=== PATIENT | female | born 1950 | race Caucasian/White ===

== ENCOUNTER 2018-01-26 10:23 | Outpatient (CLI) | payer MEDICARE, OTHER ==
[2018-01-26 17:28] LABS: BASOPHILS % (AUTO) 0.9 %; EOSINOPHILS # (AUTO) 0.2 10^3/uL (0.0-0.7); EOSINOPHILS % (AUTO) 3.7 %; HGB - HEMOGLOBIN 14.5 g/dL (12.0-16.0); LYMPHOCYTES # (AUTO) 1.1 10^3/uL (1.5-3.5); LYMPHOCYTES % (AUTO) 27.7 %; MEAN CORPUSCULAR HEMOGLOBIN 32.7 pg (27.0-31.0); MEAN CORPUSCULAR HGB CONC 34.3 g/dL (32.0-36.0); MEAN CORPUSCULAR VOLUME 95.5 fL (81.0-99.0); MEAN PLATELET VOLUME 8.4 fL (7.9-10.8); MONOCYTES # (AUTO) 0.4 10^3/uL (0.0-1.0); MONOCYTES % (AUTO) 10.1 %; NEUTROPHILS # (AUTO) 2.3 10^3/uL (1.5-6.6); NEUTROPHILS % (AUTO) 57.6 %; PLT - PLATELET COUNT 174 10^3/uL (130-450); RED BLOOD COUNT 4.44 10^6/uL (4.20-5.40); RED CELL DISTRIBUTION WIDTH 13.1 % (12.0-15.0)
[2018-01-26 17:33] LABS: INR 1.1 (0.8-1.2); PT - PROTHROMBIN TIME 12.6 secs (9.9-12.6)
[2018-01-26 17:41] LABS: ALBUMIN 4.2 g/dL (3.2-5.5); ALBUMIN/GLOBULIN RATIO 1.6 (1.0-2.2); BILIRUBIN,DIRECT 0.1 mg/dL (0.1-0.5); BILIRUBIN,TOTAL 0.6 mg/dL (0.2-1.0); CALCIUM 9.2 mg/dL (8.5-10.3); CREATININE 0.4 mg/dL (0.4-1.0); TOTAL PROTEIN 6.8 g/dL (6.7-8.2)
[2018-01-27 15:16] LABS: ALPHA FETOPROTEIN TUMOR MARKER 3.1 ng/mL
== END 2018-01-26 10:24 | disposition home or self-care (01) ==
LOC: LAB.F 10:23
PROVIDERS: ATTEND Internal Medicine
DX: B19.20 Unspecified viral hepatitis C without hepatic coma (principal); K74.60 Unspecified cirrhosis of liver; E83.119 Hemochromatosis, unspecified; I10 Essential (primary) hypertension; E78.5 Hyperlipidemia, unspecified
CPT/HCPCS: 36415; 80053; 82105; 82248; 82728; 83540; 84466; 85025; 85610; 86803; 87522

== ENCOUNTER 2018-03-01 09:46 | Outpatient (CLI) | payer MEDICARE, OTHER ==
--- NOTE | 2018-03-01 11:26 | Ultrasound Report ---
Procedure Date: 03/01/2018 Accession Number: [id number] / [id number] Procedure: US - Abdomen Complete CPT Code: FULL RESULT: EXAM: Abdomen Complete DATE: 03/01/2018 11:06 AM CLINICAL HISTORY: HEPATITIS C, HEMOCHROMATOSIS COMPARISON: None. TECHNIQUE: Real-time scanning was performed with static images obtained. FINDINGS: Liver: Shrunken with nodular contour and coarse echotexture with decreased echogenicity in keeping with cirrhosis and history of hemachromatosis. No discrete mass is identified. The main portal vein appears enlarged in caliber and demonstrates suggestion of partial reversal of flow on color Doppler only. The umbilical vein is recanalized. Gallbladder: The patient is status post cholecystectomy. Biliary System: Common bile duct measures 2.4 mm. No intrahepatic or extrahepatic ductal dilatation. Pancreas: Visualized portion is unremarkable. Kidneys: Right: 11.1 cm longitudinally. Normal. No contour-deforming mass, stones, or hydronephrosis. Left: 12.4 cm longitudinally. Normal. No contour-deforming mass, stones, or hydronephrosis. Spleen: 12 cm. Normal background echotexture with tiny cysts. Aorta and Inferior Vena Cava: Unremarkable with the upper abdominal aorta measuring up to 2.4 cm. IMPRESSION: Cirrhotic liver configuration with enlarged portal vein and recanalized periumbilical veins. No mass is identified. Recanalized periumbilical vein and subjectively enlarged portal vein with question of partial reversal of flow on limited color Doppler examination are concerning for the possibility of portal hypertension possibly with nonocclusive portal vein thrombosis. Consider CT abdomen with portal venous phase contrast versus portal venous MRV without contrast to exclude portal vein thrombosis. Referral to hepatology for workup of portal hypertension potentially with transjugular liver biopsy with pressure measurements. RADIA
== END 2018-03-01 09:47 | disposition home or self-care (01) ==
LOC: DI 09:46
PROVIDERS: ATTEND Internal Medicine
DX: B19.20 Unspecified viral hepatitis C without hepatic coma (principal); K74.60 Unspecified cirrhosis of liver; E83.119 Hemochromatosis, unspecified; Z85.05 Personal history of malignant neoplasm of liver; I82.890 Acute embolism and thrombosis of other specified veins
CPT/HCPCS: 76700

== ENCOUNTER 2018-03-20 13:01 | Outpatient (CLI) | payer MEDICARE, OTHER ==
[2018-03-20] MEDS ORDERED: IOPAMIDOL-300 100 ML VIAL ONE (13:28)
[2018-03-20] MEDS ORDERED: IOPAMIDOL-300 50 ML VIAL ONE (13:28)
[2018-03-20 13:41] LABS: CREATININE 0.6 mg/dL (0.4-1.0)
[2018-03-20] MEDS ORDERED: IOPAMIDOL-300 100 ML VIAL IVP ONE (16:00)
[2018-03-20] MEDS ORDERED: IOPAMIDOL-300 50 ML VIAL PO ONE (16:00)
--- NOTE | 2018-03-20 16:02 | CT Report ---
Procedure Date: 03/20/2018 Accession Number: [id number] / [id number] Procedure: CT - Abdomen W/ CPT Code: FULL RESULT: EXAM: CT ABDOMEN WITH CONTRAST EXAM DATE: 03/20/2018 03:05 PM. CLINICAL HISTORY: Cirrhosis with enlarged portal vein. COMPARISON: None. TECHNIQUE: Routine helical CT imaging was performed through the abdomen. IV contrast: ISOVUE 300, 100 mL Enteric contrast: No. Reconstruction: Coronal and sagittal. In accordance with CT protocol optimization, one or more of the following dose reduction techniques were utilized for this exam: automated exposure control, adjustment of mA and/or KV based on patient size, or use of iterative reconstructive technique. FINDINGS: Lung Bases: Unremarkable. Liver: Small caliber, irregular contour. No focal mass lesions. Gallbladder/Bile Ducts: Cholecystectomy. Common bile duct measures 10 mm. No intrahepatic biliary duct dilatation. Spleen: Mildly enlarged, measuring 12 cm in length. Pancreas: Normal. Adrenal Glands: Normal. Kidneys: Normal. No masses or hydronephrosis. Peritoneal Cavity/Bowel: Diverticula off the colon. No free fluid, free air or adenopathy. No masses or acute inflammatory process. Appendix not seen. Vasculature: Recanalization of the umbilical vein. Multiple upper abdominal varices. Patent portal vein. Bones: No significant abnormality. Other: None. IMPRESSION: 1. Cirrhotic liver with portal hypertension. 2. Colonic diverticulosis. RADIA
== END 2018-03-20 13:02 | disposition home or self-care (01) ==
LOC: LAB 13:01
PROVIDERS: ATTEND Internal Medicine
DX: K74.60 Unspecified cirrhosis of liver (principal); K76.6 Portal hypertension; E83.119 Hemochromatosis, unspecified; B19.20 Unspecified viral hepatitis C without hepatic coma; K57.30 Diverticulosis of large intestine without perforation or abscess without bleeding
CPT/HCPCS: 36415; 74160; 82565; Q9967

== ENCOUNTER 2018-04-26 08:53 | Outpatient (CLI) | payer MEDICARE, OTHER ==
[2018-04-26 09:38] LABS: CHOL/HDL RATIO 3.4 (<4.4); CHOLESTEROL 210 mg/dL; HDL CHOLESTEROL 61 mg/dL; LDL CHOLESTEROL,CALCULATED 140 mg/dL; LDL/HDL RATIO 2.3 (<4.4); VLDL CHOLESTEROL 9 mg/dL
== END 2018-04-26 08:54 | disposition home or self-care (01) ==
LOC: LAB 08:53
PROVIDERS: ATTEND Internal Medicine
DX: E78.5 Hyperlipidemia, unspecified (principal)
CPT/HCPCS: 36415; 80061; 83721

== ENCOUNTER 2018-05-09 11:32 | Outpatient (CLI) | payer MEDICARE, OTHER | END 2018-05-09 11:33 | disposition home or self-care (01) | LOC: DI 11:32 | PROVIDERS: ATTEND Internal Medicine | DX: Z12.31 Encounter for screening mammogram for malignant neoplasm of breast (principal) | CPT/HCPCS: 77063; 77067 ==

== ENCOUNTER 2019-05-11 11:39 | Outpatient (CLI) | payer MEDICARE, OTHER ==
--- NOTE | 2019-05-11 15:44 | Mammography Report ---
Reason: SCREENING MAMMO Procedure Date: 05/11/2019 Accession Number: [id number] / [id number] Procedure: MGS - Screening Mammo Dig Bilat CPT Code: FULL RESULT: EXAM: Screening Mammo Dig Bilat DATE: 05/11/2019 12:02 PM CLINICAL HISTORY: Screening TECHNIQUE: (B) - Bilateral CC and MLO views were obtained. COMPARISON: 05/09/2018 PARENCHYMAL PATTERN: (A) - The breasts demonstrate scattered fibroglandular densities bilaterally. FINDINGS: There are no suspicious masses, calcifications, or areas of distortion. IMPRESSION: Negative examination. BI-RADS category 1. RECOMMENDATION: (ANNUAL) - Recommend routine annual screening mammography. BI-RADS CATEGORY: (1) - Negative. STANDARD QUALIFYING STATEMENTS: 1. This examination was reviewed with the aid of Computer-Aided Detection (CAD). 2. A negative or benign imaging report should not preclude biopsy if clinically suspicious findings are present. 3. Dense breasts may obscure an underlying neoplasm. 4. This examination was reviewed without the aid of 3D breast imaging (tomosynthesis).
== END 2019-05-11 11:40 | disposition home or self-care (01) ==
LOC: DI.S 11:39
DX: Z12.31 Encounter for screening mammogram for malignant neoplasm of breast (principal)
CPT/HCPCS: 77067

== ENCOUNTER 2020-01-27 08:32 | Outpatient (CLI) | payer MEDICARE, OTHER ==
[2020-01-27 10:30] LABS: INR 1.1 (0.8-1.2); PT - PROTHROMBIN TIME 12.9 secs (9.9-12.6)
[2020-01-27 10:31] LABS: BASOPHILS % (AUTO) 0.7 %; EOSINOPHILS # (AUTO) 0.1 10^3/uL (0.0-0.7); EOSINOPHILS % (AUTO) 3.2 %; HGB - HEMOGLOBIN 13.6 g/dL (12.0-16.0); LYMPHOCYTES # (AUTO) 1.1 10^3/uL (1.5-3.5); LYMPHOCYTES % (AUTO) 26.9 %; MEAN CORPUSCULAR HEMOGLOBIN 33.2 pg (27.0-31.0); MEAN CORPUSCULAR HGB CONC 34.8 g/dL (32.0-36.0); MEAN CORPUSCULAR VOLUME 95.4 fL (81.0-99.0); MEAN PLATELET VOLUME 9.8 fL (7.9-10.8); MONOCYTES # (AUTO) 0.4 10^3/uL (0.0-1.0); MONOCYTES % (AUTO) 10.5 %; NEUTROPHILS # (AUTO) 2.4 10^3/uL (1.5-6.6); NEUTROPHILS % (AUTO) 58.5 %; PLT - PLATELET COUNT 184 10^3/uL (130-450); RED CELL DISTRIBUTION WIDTH 12.4 % (12.0-15.0); WHITE BLOOD COUNT 4.1 x10^3/uL (4.8-10.8)
[2020-01-27 10:41] LABS: ALBUMIN/GLOBULIN RATIO 1.5 (1.0-2.2); CALCIUM 9.1 mg/dL (8.5-10.3); CREATININE 0.6 mg/dL (0.4-1.0); TOTAL PROTEIN 6.7 g/dL (6.7-8.2)
--- NOTE | 2020-01-28 10:16 | Ultrasound Report ---
PROCEDURE: Abdomen Complete INDICATIONS: CIRRHOSIS OF LIVER TECHNIQUE: Real-time scanning was performed of the abdominal and retroperitoneal organs, with image documentatio n. COMPARISON: CT of abdomen dated 03/20/2018. FINDINGS: Liver: Liver is normal in size. Increased liver parenchymal echotexture is seen with lobulated liver contour concerning for cirrhosis. No discrete hepatic lesion is noted. Main portal vein measures 1.7 cm in diameter and show normal hepatopedal flow. Gallbladder: Gallbladder is surgically absent. Biliary ducts: Intrahepatic bile ducts are non-dilated. Extrahepatic bile duct caliber measures 7 m m. Normal is 6-7 mm or less in diameter, or 10 mm or less post-cholecystectomy. Pancreas: Visualized portions of the pancreas are sonographically normal. Spleen: Spleen is normal in size and homogeneous in echotexture. Kidneys: Kidneys are normal in size and echotexture. Right kidney measures 11.4 cm long; left kidne y measures 11.7 cm long. No hydronephrosis or nephrolithiasis. No solid masses. Aorta: Visualized aorta is normal in caliber at less than 3 cm. Iliacs: Proximal common iliac arteries are normal in caliber at less than 2.5 cm. IVC: Intrahepatic inferior vena cava is patent. Miscellaneous: No free abdominal fluid. IMPRESSION: 1. Cirrhotic appearing liver. No discrete hepatic lesion. Patent main portal vein with normal directi on of flow. 2. Prior cholecystectomy. 3. Rest of exam is unremarkable. Reviewed by: Vipul Alvarez MD on 01/28/2020 10:15 AM PDT Approved by: Vipul Alvarez MD on 01/28/2020 10:15 AM PDT Station ID: [id number]
== END 2020-01-27 08:33 | disposition home or self-care (01) ==
LOC: DI 08:32
PROVIDERS: ATTEND Nurse Practitioner
DX: K74.69 Other cirrhosis of liver (principal); Z90.49 Acquired absence of other specified parts of digestive tract
CPT/HCPCS: 36415; 76700; 80053; 82105; 85025; 85610

== ENCOUNTER 2021-02-07 16:39 | Outpatient (CLI) | payer MEDICARE, OTHER ==
--- NOTE | 2021-02-07 18:15 | Ultrasound Report ---
PROCEDURE: Abdomen Complete INDICATIONS: CIRRHOSIS OF LIVER TECHNIQUE: Real-time scanning was performed of the abdominal and retroperitoneal organs, with image documentatio n. COMPARISON: 01/27/2020 FINDINGS: Liver: The liver is again noted to have a coarsened echotexture with mild surface lobulations consist ent with cirrhotic change. Main portal vein is dilated, measuring 19 mm. There is hepatopedal flow. Gallbladder: Surgically absent Biliary ducts: Intrahepatic bile ducts are non-dilated. Extrahepatic bile duct caliber measures 9 m m. Normal is 6-7 mm or less in diameter, or 10 mm or less post-cholecystectomy. Pancreas: Visualized portions of the pancreas are sonographically normal. Spleen: Spleen is normal in size and homogeneous in echotexture. Spleen measures 10.3 cm in maximum diameter. Kidneys: Kidneys are normal in size and echotexture. Right kidney measures 10.0 cm long; left kidne y measures 11.1 cm long. No hydronephrosis or nephrolithiasis. No solid masses. Aorta: Visualized aorta is normal in caliber at less than 3 cm. Iliacs: Proximal common iliac arteries are normal in caliber at less than 2.5 cm. IVC: Intrahepatic inferior vena cava is patent. Miscellaneous: No free abdominal fluid. IMPRESSION: 1. Cirrhotic liver without focal masses. 2. Dilated main portal vein suggests portal venous hypertension. There is hepatopedal flow. 3. No splenomegaly or ascites. 4. Remote cholecystectomy. Reviewed by: Deep Palacios MD on 02/07/2021 5:14 PM AKGIANNA Approved by: Deep Palacios MD on 02/07/2021 5:14 PM AKDT Station ID: [id number]
== END 2021-02-07 16:40 | disposition home or self-care (01) ==
LOC: DI 16:39
PROVIDERS: ATTEND Nurse Practitioner
DX: K74.60 Unspecified cirrhosis of liver (principal); I87.8 Other specified disorders of veins; Z90.49 Acquired absence of other specified parts of digestive tract

== ENCOUNTER 2021-02-09 10:23 | Outpatient (CLI) | payer MEDICARE, OTHER ==
--- NOTE | 2021-02-11 11:52 | Mammography Report ---
BILATERAL DIGITAL SCREENING MAMMOGRAM 3D/2D: 02/09/2021 CLINICAL: Routine screening. Comparison is made to exams dated: 05/11/2019 mammogram, 05/09/2018 mammogram - [facility], 10/08/2013 mammogram, 10/01/2011 mammogram, 04/20/2010 mammogram, and 12/13/2006 mammogram. The ti ssue of both breasts is predominantly fatty. There is a stable benign focal asymmetry in the left breast. No significant masses, calcifications, or other findings are seen in either breast. There has been no significant interval change. IMPRESSION: BENIGN There is no mammographic evidence of malignancy. A 1 year screening mammogram is recommended. This exam was interpreted at Station ID: [id number]. NOTE: For mammograms, a report in lay terms will be sent to the patient. Approximately 15% of breast malignancies will not be visualized mammographically. In the management of a palpable breast mass, a negative mammogram must not discourage biopsy of a clinically suspicious lesion. Electronically Signed By: Fidel Roa acr/penrad:02/10/2021 18:06:24 ACR BI-RADS Category 2: Benign Finding(s) 3342F PARENCHYMAL PATTERN: (F) - The breast(s) demonstrate(s) diffuse fatty replacement. BI-RADS CATEGORY: (2) - 2 RECOMMENDATION: (ANNUAL) - Recommend routine annual screening mammography. [id number] 1 year screening LATERALITY: (B)
== END 2021-02-09 10:24 | disposition home or self-care (01) ==
LOC: DI.S 10:23
PROVIDERS: ATTEND Nurse Practitioner Family
DX: Z12.31 Encounter for screening mammogram for malignant neoplasm of breast (principal)